=== PATIENT | female | born 1990 | race Caucasian/White ===

== ENCOUNTER 2022-04-17 16:23 | Emergency (ER) | payer MEDICAID ==
[~2022-04-17] VITALS: Ht 154.9 cm; Wt 59.4 kg
[2022-04-17 17:26] LABS: BILIRUBIN,URINE NEGATIVE (NEGATIVE); COLOR,URINE YELLOW (YELLOW); LEUKOCYTE ESTERASE ,URINE 2+ (NEGATIVE); NITRITE, URINE POSITIVE (NEGATIVE); PROTEIN,URINE NEGATIVE (NEGATIVE); UGLUCOSE NEGATIVE (NEGATIVE); UROBILINOGEN,URINE 0.2 EU/dL (0.2)
[2022-04-17 18:14] LABS: BACTERIA,URINE 3+ /HPF (None Seen); RBC,URINE 0-2 /HPF (0-2); WBC,URINE 21-50 /HPF (0-3)
--- NOTE | 2022-04-17 18:19 | NUR ---
TO ER BED 2,NO APPARENT CHANGE IN CONDITION
[2022-04-17] MEDS ORDERED: CEFTRIAXONE 500 MG VIAL IM ONE (19:30)
[2022-04-17] MEDS ORDERED: LIDOCAINE /MPF 1% VIAL 5 ML VIAL ONE (19:34)
[2022-04-17] MEDS ORDERED: CEFTRIAXONE 500 MG VIAL ONE (19:34)
[2022-04-17] MEDS ORDERED: CEPH500C2 PO (19:38)
--- NOTE | 2022-04-17 19:51 | NUR ---
Patient discharged to home in stable condition. Written and verbal after care instructions given. Patient verbalizes understanding of instruction.
[2022-04-17 20:07] VITALS: BP 119/74
== END 2022-04-17 20:07 | disposition home or self-care (01) ==
LOC: ER 16:28
DX: O26.899 Other specified pregnancy related conditions, unspecified trimester (principal); O23.40 Unspecified infection of urinary tract in pregnancy, unspecified trimester; N39.0 Urinary tract infection, site not specified; N89.8 Other specified noninflammatory disorders of vagina; Z3A.00 Weeks of gestation of pregnancy not specified; Z79.899 Other long term (current) drug therapy
CPT/HCPCS: 99283; 87086; 84703; 81001; 87491; 87591; J3490; J0696

== ENCOUNTER 2022-04-26 19:31 | Emergency (ER) | payer MEDICAID ==
[~2022-04-26 19:31] MED LIST: CEPH500C2 PO
--- NOTE | 2022-04-26 20:03 | NUR ---
CALLED PT TO TRIAGE ROOM. NO ANSWER
--- NOTE | 2022-04-26 20:23 | NUR ---
CALLED PT TO TRIAGE ROOM. NO ANSWER
== END 2022-04-26 20:24 | disposition left against medical advice (07) ==
LOC: ER 19:32
DX: Z53.21 Procedure and treatment not carried out due to patient leaving prior to being seen by health care provider (principal)